=== PATIENT | female | born 1955 | race Asian ===

== ENCOUNTER 2022-06-06 16:01 | Emergency (ER) | payer MEDICARE, OTHER ==
[~2022-06-06] VITALS: Ht 160 cm; Wt 72.7 kg
[~2022-06-06 16:01] MED LIST: AMLO10TA55 PO; SIMV10TA97 PO; VALS80TA32 PO
[2022-06-06] MEDS ORDERED: LOSA-382 PO (17:59)
[2022-06-06] MEDS ORDERED: OXYB5TAB20 PO (17:59)
[2022-06-06] MEDS ORDERED: SIMV10TA97 PO (18:00)
[2022-06-06] MEDS ORDERED: PERTUSS(ACELL),DIPH,TET VAC/PF 0.5 ML SYRINGE IM. ONE (18:00)
[2022-06-06] MEDS ORDERED: AMOX1TAB16 PO (18:09)
[2022-06-06 18:21] VITALS: BP 140/80
== END 2022-06-06 18:22 | disposition home or self-care (01) ==
LOC: EMS 16:43
DX: S61.250A Open bite of right index finger without damage to nail, initial encounter (principal); E78.00 Pure hypercholesterolemia, unspecified; Z98.890 Other specified postprocedural states
CPT/HCPCS: 90471; 90715; 99283